=== PATIENT | male | born 1995 | race African-American/Black ===

== ENCOUNTER 2018-12-15 22:23 | Emergency (ER) | payer SELFPAY ==
[2018-12-15 22:34] VITALS: BP 126/77; PULSE 120; TEMP 98.2; BMI 28.3
[2018-12-16] MEDS ORDERED: LIDOCAINE 1%/EPI 1:100000 (20 ML MULTI DOSE VIAL) INF ONE (00:13)
[2018-12-16] MEDS ORDERED: DIPHTH,PERTUSS(ACELL),TET 0.5 ML DISP.SYRIN IM ONE ×2 (00:16→00:25)
[2018-12-16] MEDS ORDERED: LIDOCAINE 1%/EPI 1:100000 (20 ML MULTI DOSE VIAL) ONE (00:25)
[2018-12-16] MEDS ORDERED: ACETAMINOPHEN 325 MG TABLET (FP) PO ONE (00:25)
[2018-12-16] MEDS ORDERED: ACETAMINOPHEN 325 MG TABLET (FP) ONE (00:34)
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
== END 2018-12-16 01:34 | disposition home or self-care (01) ==
LOC: JER 22:23
PROC: 3E0234Z Introduction of Serum, Toxoid and Vaccine into Muscle, Percutaneous Approach (ICD-10-PCS; principal; 2018-12-15)
PROC: 0HQ1XZZ Repair Face Skin, External Approach (ICD-10-PCS; 2018-12-15)
DX: S01.81XA Laceration without foreign body of other part of head, initial encounter (principal); X99.9XXA Assault by unspecified sharp object, initial encounter; Y93.89 Activity, other specified; Y92.89 Other specified places as the place of occurrence of the external cause; Y99.8 Other external cause status; Y07.9 Unspecified perpetrator of maltreatment and neglect
CPT/HCPCS: 90715; 99284-25

== ENCOUNTER 2023-01-09 09:07 | Emergency (ER) | payer OTHER ==
[2023-01-09 09:20] VITALS: BP 127/79; PULSE 71; RESP 18; TEMP 98.1; BMI 26.6
[2023-01-09] MEDS ORDERED: IBUPROFEN 600 MG TABLET (FP) PO ONE (10:11)
[2023-01-09] MEDS ORDERED: KETOROLAC TROMETHAMINE 30 MG/1 ML VIAL IM ONE (10:12)
[2023-01-09] MEDS ORDERED: ACETAMINOPHEN 500 MG TABLET (FP) PO ONE (10:12)
[2023-01-09] MEDS ORDERED: LIDOCAINE 5% TOPICAL PATCH TP ONE (10:12)
[2023-01-09] MEDS ORDERED: ACETAMINOPHEN 325 MG TABLET (FP) ONE (10:17)
[2023-01-09] MEDS ORDERED: KETOROLAC TROMETHAMINE 30 MG/1 ML VIAL ONE (10:18)
[2023-01-09] MEDS ORDERED: LIDOCAINE 5% TOPICAL PATCH ONE (10:18)
[2023-01-09] MEDS ORDERED: KETOROLAC TROMETHAMINE 15 MG/ML VIAL ONE (10:18)
[2023-01-09] MEDS ORDERED: LIDOCAINE PATCH REMOVAL MC ONE (22:00)
== END 2023-01-09 10:43 | disposition home or self-care (01) ==
LOC: JER 09:07
PROC: 3E0233Z Introduction of Anti-inflammatory into Muscle, Percutaneous Approach (ICD-10-PCS; principal; 2023-01-09)
DX: M94.0 Chondrocostal junction syndrome [Tietze] (principal); R07.89 Other chest pain; M54.6 Pain in thoracic spine
CPT/HCPCS: 71046-TC-FY; 93005; 93010; 99284-25

== ENCOUNTER 2023-01-23 21:41 | Emergency (ER) | payer OTHER ==
[2023-01-23 21:50] VITALS: BP 123/82; PULSE 80; RESP 17; TEMP 97.9; BMI 25.0
[2023-01-23] MEDS ORDERED: IBUPROFEN 600 MG TABLET (FP) PO ONE (22:34)
== END 2023-01-23 23:34 | disposition home or self-care (01) ==
LOC: JER 21:41
DX: R07.89 Other chest pain (principal); R22.2 Localized swelling, mass and lump, trunk
CPT/HCPCS: 71046-TC-FY; 93005; 93010; 99284-25